=== PATIENT | female | born 1980 | race Hispanic/Latino ===

== ENCOUNTER 2021-09-22 14:06 | Emergency (ER) | payer OTHER ==
[2021-09-22] MEDS ORDERED: Morphine 4 MG/ML VIAL ONE (14:40)
[2021-09-22] MEDS ORDERED: Ondansetron PF 4 MG/2 ML Vial ONE (14:40)
[2021-09-22] MEDS ORDERED: Sodium Chloride 0.9% 1,000 ML ONE ×2 (14:40→15:07)
[2021-09-22 14:45] LABS: Pregnancy Test - Urine (BHCG) Negative (Negative)
[2021-09-22 14:46] LABS: Pregu Control Background? CLEAR/WHITE (CLR/WHITE); Pregu Control Bar Appear? YES (CONTROL BAR); Specific Gravity 1.038 (1.002-1.036)
[2021-09-22 14:56] LABS: Bilirubin Small (Negative); Blood, Urine Small (Negative); Clarity Clear (Clear); Glucose, Urine (Dipstick) 500 mg/dL (Negative); Ketone, Urine > or equal to 80 mg/dL (Negative); Leukocyte Negative (Negative); Nitrite Negative (Negative); Protein, Urine (Dipstick) > or equal to 300 mg/dL (Neg-Trace); Urobilinogen 0.2 mg/dL (Less than 2); pH, Urine 5.5 (5.0-9.0)
[2021-09-22 14:59] LABS: Specific Gravity, Urine 1.038 (1.002-1.036)
[2021-09-22 14:59] LABS: Hemoglobin 15.5 g/dL (12.0-16.0); Mean Corpuscular Hemoglobin 40.6 pg (27.0-31.0); Mean Corpuscular Volume 93.8 fL (78.0-98.0); Mean Platelet Volume 8.6 fL (7.4-10.4); Platelet Count 452 thou/uL (130-400); RBC Distribution Width 12.1 % (11.5-14.5); Red Blood Cell (RBC) Count 5.14 mill/uL (4.20-5.40); White Blood Cell (WBC) Count 19.3 thou/uL (4.8-10.8)
[2021-09-22 15:00] LABS: Albumin 4.3 g/dL (3.5-5.0); Alkaline Phosphatase 158 U/L (40-110); Anion Gap 22 mmol/L (10-20); BUN (Urea Nitrogen) 7 mg/dL (7.0-18.7); Bilirubin, Total 0.5 mg/dL (0.2-1.2); Calc. Creatinine Clearance 0 mL/min (70-130); Calcium 10.2 mg/dL (7.8-10.44); Carbon Dioxide 10 mmol/L (22-29); Chloride 98 mmol/L (98-107); Globulin 6.8 g/dL (2.4-3.5); Glucose 352 mg/dL (70-105); Lipase 118 U/L (8-78); Potassium 3.9 mmol/L (3.5-5.1); Protein, Total 11.1 g/dL (6.0-8.3); Sodium 126 mmol/L (136-145)
[2021-09-22 15:01] LABS: Bacteria/HPF Rare-Few HPF (None Seen); RBC/HPF 0-3 HPF (0-3); WBC/HPF None Seen HPF (0-3)
[2021-09-22] MEDS ORDERED: Piperacillin/Tazobactam 4.5 GM VIAL ONE (15:07)
[2021-09-22] MEDS ORDERED: Sodium Chloride 0.9% 100 ML ONE (15:07)
[2021-09-22 15:11] LABS: Band 3 % (5-11); Lymphocytes 21 % (21-51); MDiff Complete? YES; Manual Diff?? YES; Mean Corpuscular HGB CONC 35.4 g/dL (32.0-36.0); Monocytes 3 % (0-10); Neutrophil 69 % (42-75)
[2021-09-22 15:12] LABS: Eosinophils 4 % (0-10); Platelet Morphology Comment Appears Adequate
[2021-09-22 15:13] LABS: RBC Morphology Normal
[2021-09-22 15:16] LABS: ALT (SGPT) 23 U/L (8-55); AST (SGOT) 12 U/L (5-34)
[2021-09-22] MEDS ORDERED: Sodium Chloride 0.9% 500 ML ONE (15:40)
[2021-09-22 15:48] LABS: Base Excess-Venous -16.7 mmol/L (-2.0 to 3.0); Hemoglobin - Calc 14.3 g/dL (12.0-16.0); vO2 Saturation-calc 79.2 % (60.0-85.0)
[2021-09-22 15:49] LABS: Calcium, Ionized 1.07 mmol/L (1.15-1.33); Chloride 113 mmol/L (98-107); Potassium 3.8 mmol/L (3.5-5.1); Sodium 133 mmol/L (138-145); T. Carbon Dioxide 10.3 mmol/L (22.0-28.0)
[2021-09-22 15:51] LABS: CO2 Tension (PvCO2) 24.5 mmHg (42.0-51.0)
[2021-09-22 15:52] LABS: Bicarbonate (HCO3v) 9.6 mmol/L (22.0-28.0)
[2021-09-22] MEDS ORDERED: Pantoprazole 40 MG VIAL ONE (16:27)
[2021-09-22] MEDS ORDERED: diphenhydrAMINE 50 MG/ML VIAL ONE (17:02)
[2021-09-22 17:08] LABS: Critical Call Chem-Lactate Y; Lactic Acid 1.7 mmol/L (0.5-2.2)
[2021-09-22 17:11] LABS: SARS-CoV-2 NAA Rapid Test Not Detected (NotDetected)
== END 2021-09-22 18:10 | disposition short-term general hospital (02) ==
LOC: NAV ERS 14:06
DX: K29.80 Duodenitis without bleeding (principal); K80.20 Calculus of gallbladder without cholecystitis without obstruction; A41.9 Sepsis, unspecified organism; E86.0 Dehydration; E87.1 Hypo-osmolality and hyponatremia; E11.65 Type 2 diabetes mellitus with hyperglycemia; E11.10 Type 2 diabetes mellitus with ketoacidosis without coma; K85.90 Acute pancreatitis without necrosis or infection, unspecified; Z20.822 Contact with and (suspected) exposure to COVID-19
CPT/HCPCS: 36415; 36416; 71045; 74177; 80053; 81003; 81015; 81025; 82010; 82330; 82803; 83605; 83690; 84484; 85025; 87040; 93005; 94760; 96365; 96367; 96374; 96375; C9113; J1200; J2270; J2405; J2543; J3370; J3490; J7030; J7050; U0002